=== PATIENT | male | born 1945 | race Caucasian/White ===

== ENCOUNTER 2017-05-04 11:10 | Emergency (ER) | payer OTHER, MEDICARE ==
[2017-05-04 11:14] VITALS: BP 126/61; PULSE 85; TEMP 97.2; BMI 26.9
--- NOTE | 2017-05-04 11:47 | PDOC ---
History of Present Illness - General Chief Complaint: Injury Stated Complaint: L FOOT INJURY Time Seen by Provider: 05/04/17 11:24 History Source: Patient Exam Limitations: No Limitations - History of Present Illness Initial Comments: 05/04/17 11:44 72 yr male with c/o left foot pain after stomping on the ground on ice and snow pile 2 days go then woke up and had redness and pain to the left foot, great toe /bunion area. no fever no history of gout. Occurred: reports: yesterday Severity: Yes: moderate Lower Extremity Pain Location: left: 1st toe, foot (redness, tender to touch great toe pain) Past History - Past Medical History Allergies/Adverse Reactions: Allergies Allergy/AdvReac Type Severity Reaction Status Date / Time No Known Allergies Allergy Verified 05/04/17 11:14 Home Medications: Ambulatory Orders Aspirin [ASA -] 81 mg PO DAILY 05/17/13 Clopidogrel Bisulfate [Plavix -] 75 mg PO DAILY 05/17/13 Furosemide [Lasix -] 40 mg PO DAILY 05/17/13 Levothyroxine [Synthroid -] 50 mcg PO DAILY 05/17/13 Lisinopril [Prinivil -] 5 mg PO DAILY 05/17/13 Metoprolol Succinate [Toprol XL -] 100 mg PO DAILY 05/17/13 Colchicine 0.6 mg PO TID PRN #9 capsule 05/04/17 Prednisone [Deltasone -] 20 mg PO BID #14 tablet 05/04/17 Anemia: No Asthma: No Cancer: No Cardiac Disorders: Yes (AFIB) CVA: No COPD: No CHF: No Dementia: No Diabetes: No GI Disorders: No HTN: Yes Hypercholesterolemia: Yes - Surgical History Appendectomy: Yes Cardiac Surgery: Yes (STENT) - Suicide/Smoking/Psychosocial Hx Smoking History: Never smoked Have you smoked in the past 12 months: No Number of Cigarettes Smoked Daily: 0 Hx Alcohol Use: No Drug/Substance Use Hx: No Hx Substance Use Treatment: No *Physical Exam - Vital Signs Last Vital Signs Temp Pulse Resp BP Pulse Ox 97.2 F L 85 20 126/61 99 05/04/17 11:11 05/04/17 11:11 05/04/17 11:11 05/04/17 11:11 05/04/17 11:11 - Physical Exam General Appearance: Yes: Nourished, Appropriately Dressed HEENT: positive: EOMI, CORIE Neck: positive: Supple Respiratory/Chest: positive: Lungs Clear, Normal Breath Sounds Cardiovascular: positive: Regular Rhythm, Regular Rate Musculoskeletal: positive: Normal Inspection Extremity: positive: Normal Capillary Refill, Normal Inspection, Normal Range of Motion, Tender, Erythema (left foot great toe /bunion with redness, warmth to touch blanching redness ), Inflammation Neurologic: positive: Fully Oriented, Alert, Normal Mood/Affect, Normal Response , Motor Strength 09/20 ED Treatment Course - RADIOLOGY Radiology Studies Ordered: Category Date Time Status FOOT-LEFT [RAD] Stat Radiology 05/04/17 11:43 Ordered Medical Decision Making - Medical Decision Making 05/04/17 11:46 cc: pain redness to left toe and top of the forefoot started yesterday after pt was stomping on a snow pile. pt denies gout history no fever will r/o fracture will check uric acid for labs pt on blood thinners unable to give indocin 05/04/17 19:13 labs discussed xray is negative will treat for gout pt states he will follow with his doctor tomorrow. will give steroids and colchicine. called from pharmacy states the pharmacist said the simvistatin and colchicine interact and suggests not to take the medication. Simvistatin was not on the drug list that pt was taking here in the ER. I discussed with the that pt should not take the medication until they discuss it with the PMD pt agrees with the plan of care. 05/04/17 19:16 *DC/Admit/Observation/Transfer Diagnosis at time of Disposition: Gout attack Qualifiers: Gout site: toe Gout etiology: unspecified cause Laterality: left Qualified Code (s): M10.9 - Gout, unspecified - Discharge Dispostion Disposition: HOME Condition at time of disposition: Improved - Prescriptions Prescriptions: Colchicine 0.6 mg PO TID PRN #9 capsule PRN Reason: Pain Prednisone [Deltasone -] 20 mg PO BID #14 tablet - Referrals Referrals: Lucian Leggett MD [Primary Care Provider] - - Patient Instructions Additional Instructions: take colchicine as directed, in none hour from the first dose you can take 0.6mg tab for the first day you should take the next dose of prednsione tomorrow elevate the foot and apply warm compresses to the area of pain for comfort follow with your primary care doctor tomorrow for follow up - Post Discharge Activity
[2017-05-04] MEDS ORDERED: COLCHICINE 0.6 MG TABLET (FP) PO ONE (12:51)
[2017-05-04] MEDS ORDERED: predniSONE 20 MG TABLET (UD) PO ONE (12:51)
[2017-05-04] MEDS ORDERED: predniSONE 20 MG TABLET (UD) ONE (12:56)
[2017-05-04] MEDS ORDERED: COLCHICINE 0.6 MG TABLET (FP) ONE (12:58)
== END 2017-05-04 13:05 | disposition home or self-care (01) ==
LOC: JERFT 11:10
DX: M10.9 Gout, unspecified (principal); I10 Essential (primary) hypertension; E78.00 Pure hypercholesterolemia, unspecified; E03.9 Hypothyroidism, unspecified; I48.91 Unspecified atrial fibrillation; Z79.01 Long term (current) use of anticoagulants
CPT/HCPCS: 36415; 73630-TC-LT; 84550; 99281-25